=== PATIENT | female | born 1950 | race Caucasian/White ===

== ENCOUNTER 2020-05-25 13:44 | Emergency (ER) | payer OTHER, MEDICAID, SELFPAY ==
--- NOTE | 2020-05-25 17:28 | NUR ---
PATIENT CONDITION STABLE UNABLE TO REACH FAMILY AT HOME FOR PATIENT D/C.
[2020-05-25 17:40] VITALS: BP 125/50
--- NOTE | 2020-05-25 17:57 | NUR ---
TALKED TO DAUGHTER AWAITING FOR FAMILY MEMBER TO WET WHEELER PATIENT.
== END 2020-05-25 21:22 | disposition home or self-care (01) ==
LOC: MED 13:44
DX: U07.1 COVID-19 (principal); R41.82 Altered mental status, unspecified; E11.9 Type 2 diabetes mellitus without complications; I11.0 Hypertensive heart disease with heart failure; I50.9 Heart failure, unspecified; F03.90 Unspecified dementia, unspecified severity, without behavioral disturbance, psychotic disturbance, mood disturbance, and anxiety; F32.9 Major depressive disorder, single episode, unspecified; B02.9 Zoster without complications
CPT/HCPCS: 71045; 99283